=== PATIENT | female | born 1940 | race Caucasian/White ===

== ENCOUNTER → 2023-10-29 13:47 | Outpatient (REF) | payer OTHER, SELFPAY | LOC: HWRAD 13:47 | PROVIDERS: ATTENDING PHYSICIAN Nurse Practitioner Family | DX: M25.562 Pain in left knee (principal) | CPT/HCPCS: 73564 ==

== ENCOUNTER → 2024-02-19 14:02 | Outpatient (REF) | payer OTHER, SELFPAY | LOC: HWRCS 14:02 | PROVIDERS: ATTENDING PHYSICIAN Internal Medicine Cardiovascular Disease; FAMILY PHYSICIAN Internal Medicine | DX: I10 Essential (primary) hypertension (principal); I38 Endocarditis, valve unspecified | CPT/HCPCS: 93306 ==

== ENCOUNTER → 2024-10-15 09:36 | Outpatient (REF) | payer OTHER, SELFPAY | LOC: HWRAD 09:36 | PROVIDERS: ATTENDING PHYSICIAN Internal Medicine Geriatric Medicine | DX: M81.0 Age-related osteoporosis without current pathological fracture (principal) | CPT/HCPCS: 77080 ==

== ENCOUNTER 2025-05-26 00:48 | Inpatient (IN) | payer OTHER, SELFPAY ==
[2025-05-25 23:11] VITALS: BP 139/73; BMI 30.2
--- NOTE | 2025-05-25 23:19 | ED.GENMED ---
History of Present Illness
General
Chief Complaint: Heart Rate Problem
Time Seen by Provider: 05/25/25 23:19
History of Present Illness
History of Present Illness:
FOCUSED PAST MEDICAL HISTORY
- High blood pressure, hyperlipidemia
REVIEW OF OLD RECORDS
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
Note:
CHIEF COMPLAINT(S)
Heart palpitations and shortness of breath.
HISTORY OF PRESENT ILLNESS
The patient is an 85-year-old female with a history of hypertension who presented to the emergency department after experiencing a sudden onset of rapid heart rate while sitting on the sofa at approximately 9:00 to 9:30 PM. She describes the
sensation as markedly different from previous episodes of palpitations she occasionally experiences at night when she is fatigued. This episode was accompanied by dyspnea, which she has not experienced before. The patient reports her palpitations
usually resolve within a few minutes, but on this occasion, they persisted. Upon the EMS arrival, her heart rate was recorded to be in the 160s, which decreased to 110 when first assessed in the emergency department, and is currently fluctuating
between 120 and 130 beats per minute.
The patient has a past history of palpitations for which she was previously prescribed a beta-carlos by her construction code administrator, Dr. Cristy Abreu, although she is not currently on this medication. She reports rare episodes of palpitations that resolve
quickly, predominantly occurring at night and linked to tiredness. Additionally, she has noted a progressive unsteadiness on her feet for a couple of months, requiring assistance or a walker, although she does not associate this directly with her
palpitations.
An initial diagnosis of atrial fibrillation with a rapid ventricular response was confirmed via telemetry monitoring and EKG in the emergency department. There was a discussion about the risk of thromboembolic events, particularly given her risk
factors, which include female sex, age over 65, and hypertension. It was recommended that she commence anticoagulation therapy to mitigate the risk of stroke and consider hospital admission for further management and rhythm conversion therapy. A
cautious approach was advised against electrical cardioversion due to the potential risk of embolism if the atrial fibrillation had been ongoing without her knowledge.
PAST MEDICAL AND SURGICAL HISTORY
The patient has a history of hypertension.
ADDITIONAL HISTORY OBTAINED FROM SOURCES OTHER THAN THE PATIENT
According to the patients son, she requires assistance with mobility, often holding onto her husbands arm or using a walker due to unsteadiness for several months.
CHRONIC MEDICAL CONDITIONS SIGNIFICANTLY AFFECTING CARE
Hypertension
SOCIAL HISTORY
The patient reports feeling unsteady on her feet in recent months, requiring the use of a walker or support from family members.
REVIEW OF SYSTEMS
- Cardiovascular: Rapid heart rate, intermittent palpitations, history of hypertension.
- Respiratory: Shortness of breath accompanying palpitations.
PHYSICAL EXAM
General: Alert, no acute distress.
Skin: Warm, dry.
Head: Normocephalic, atraumatic.
Neck: Supple, trachea midline.
Eye Ears, nose, mouth and throat: Oral mucosa moist.
Cardiovascular: Normal peripheral perfusion, No edema. Tachycardic, irregular rhythm.
Respiratory: Respirations are non-labored.
Gastrointestinal: Abdomen nondistended.
Back: Normal range of motion, Normal alignment.
Musculoskeletal: Normal range of motion, normal strength.
Neurological: Alert and oriented to person, place, time, and situation, No focal neurological deficit observed.
Psychiatric: Cooperative, appropriate mood & affect.
PROBLEM LIST
Acute Problems:
1. Atrial fibrillation with rapid ventricular response
2. Unsteadiness on feet
Chronic Problems:
1. Hypertension
PLAN
1. Initiate a continuous intravenous drip of rate-controlling medication to manage the rapid ventricular response from atrial fibrillation.
2. Recommend admission for observation and possible initiation of anticoagulation therapy to prevent thromboembolic events.
3. Consider eventual rhythm control measures, including the cautious utility of electrical cardioversion depending on the duration of arrhythmia and risk assessment.
4. Monitor cardiac rhythm and vital signs closely in the emergency department.
DIFFERENTIAL DIAGNOSIS
The Differential Diagnosis includes, in no particular order and is not limited to:
1. Atrial fibrillation with rapid ventricular response
2. Supraventricular tachycardia
3. Multiform atrial tachycardia
4. Heart failure
5. Pulmonary embolism
6. Hyperthyroidism
7. Anemia
8. Valvular heart disease
9. Acute coronary syndrome
10. Electrolyte imbalance
EKG
- A-fib, right bundle branch block, ventricular rate 109, EKG in 2019 showed sinus rhythm
LABS
- CBC, chemistries, troponin normal
UPDATE
- Considered electrical cardioversion as symptoms appear to be acute however the patient also reports some brief episodes of palpitations as well. Her [id number] score is 3. Will rate control.
Note:
CHIEF COMPLAINT(S)
Heart palpitations and shortness of breath.
HISTORY OF PRESENT ILLNESS
The patient is an 85-year-old female with a history of hypertension who presented to the emergency department after experiencing a sudden onset of rapid heart rate while sitting on the sofa at approximately 9:00 to 9:30 PM. She describes the
sensation as markedly different from previous episodes of palpitations she occasionally experiences at night when she is fatigued. This episode was accompanied by dyspnea, which she has not experienced before. The patient reports her palpitations
usually resolve within a few minutes, but on this occasion, they persisted. Upon the EMS arrival, her heart rate was recorded to be in the 160s, which decreased to 110 when first assessed in the emergency department, and is currently fluctuating
between 120 and 130 beats per minute.
The patient has a past history of palpitations for which she was previously prescribed a beta-carlos by her construction code administrator, Dr. Cristy Abreu, although she is not currently on this medication. She reports rare episodes of palpitations that resolve
quickly, predominantly occurring at night and linked to tiredness. Additionally, she has noted a progressive unsteadiness on her feet for a couple of months, requiring assistance or a walker, although she does not associate this directly with her
palpitations.
An initial diagnosis of atrial fibrillation with a rapid ventricular response was confirmed via telemetry monitoring and EKG in the emergency department. There was a discussion about the risk of thromboembolic events, particularly given her risk
factors, which include female sex, age over 65, and hypertension. It was recommended that she commence anticoagulation therapy to mitigate the risk of stroke and consider hospital admission for further management and rhythm conversion therapy. A
cautious approach was advised against electrical cardioversion due to the potential risk of embolism if the atrial fibrillation had been ongoing without her knowledge.
PAST MEDICAL AND SURGICAL HISTORY
The patient has a history of hypertension.
ADDITIONAL HISTORY OBTAINED FROM SOURCES OTHER THAN THE PATIENT
According to the patients son, she requires assistance with mobility, often holding onto her husbands arm or using a walker due to unsteadiness for several months.
CHRONIC MEDICAL CONDITIONS SIGNIFICANTLY AFFECTING CARE
Hypertension
SOCIAL HISTORY
The patient reports feeling unsteady on her feet in recent months, requiring the use of a walker or support from family members.
REVIEW OF SYSTEMS
- Cardiovascular: Rapid heart rate, intermittent palpitations, history of hypertension.
- Respiratory: Shortness of breath accompanying palpitations.
PHYSICAL EXAM
General: Alert, no acute distress.
Skin: Warm, dry.
Head: Normocephalic, atraumatic.
Neck: Supple, trachea midline.
Eye Ears, nose, mouth and throat: Oral mucosa moist.
Cardiovascular: Normal peripheral perfusion, No edema. Tachycardic, irregular
Respiratory: Respirations are non-labored.
Gastrointestinal: Abdomen nondistended.
Back: Normal range of motion, Normal alignment.
Musculoskeletal: Normal range of motion, normal strength.
Neurological: Alert and oriented to person, place, time, and situation, No focal neurological deficit observed.
Psychiatric: Cooperative, appropriate mood & affect.
PROBLEM LIST
Acute Problems:
1. Atrial fibrillation with rapid ventricular response
2. Unsteadiness on feet
Chronic Problems:
1. Hypertension
PLAN
1. Initiate a continuous intravenous drip of rate-controlling medication to manage the rapid ventricular response from atrial fibrillation.
2. Recommend admission for observation and possible initiation of anticoagulation therapy to prevent thromboembolic events.
3. Consider eventual rhythm control measures, including the cautious utility of electrical cardioversion depending on the duration of arrhythmia and risk assessment.
4. Monitor cardiac rhythm and vital signs closely in the emergency department.
DIFFERENTIAL DIAGNOSIS
The Differential Diagnosis includes, in no particular order and is not limited to:
1. Atrial fibrillation with rapid ventricular response
2. Supraventricular tachycardia
3. Multiform atrial tachycardia
4. Heart failure
5. Pulmonary embolism
6. Hyperthyroidism
7. Anemia
8. Valvular heart disease
9. Acute coronary syndrome
10. Electrolyte imbalance
Disposition:
SUMMARY OF ENCOUNTER
The patient, an 85-year-old female with a history of hypertension, was seen in the emergency department for atrial fibrillation with rapid ventricular response. Upon arrival, her heart rate was fluctuating between 120 and 130 bpm. She was started on
a continuous intravenous drip of rate-controlling medication, which helped in reducing the heart rate, though some fluctuations remained. The patients blood work appeared normal. Given her current state of atrial fibrillation, it was determined that
immediate electrical cardioversion was not safe. The plan was to keep her under observation in the hospital, with further assessment by a construction code administrator planned for the following day.
DISPOSITION
Admit.
MANAGEMENT OF THE PATIENTS CARE WAS DISCUSSED WITH
Discussion involved notifying the hospitalist team and the group of her construction code administrator, Dr. Cristy bAreu. Contact was to be made with Ibis Garcia, the construction code administrator motion picture cameraman for further care coordination.
PLAN
The patient will be admitted for observation and further cardiac monitoring. Await consultation from the construction code administrator group associated with Dr. Cristy Abreu for ongoing evaluation and management. Electrical cardioversion is deferred for now.
PATIENT EDUCATION AND COUNSELING
The patient was informed about her atrial fibrillation and the decision to hold off on electrical cardioversion due to potential risks. Information was provided regarding the plan to admit her for further observation and cardiology evaluation.
FOLLOW-UP INSTRUCTIONS
The hospital team will coordinate with Dr. Cristy Lew cardiology group for further management decisions.
MEDICAL DECISION MAKING
-Complexity of Data Reviewed: Chronic conditions affecting care include hypertension and atrial fibrillation. Differential Diagnosis includes atrial fibrillation with rapid ventricular response, supraventricular tachycardia, and multiform atrial
tachycardia.
-Data:
Category 2: Clinical information obtained from an independent historian, the patients son provided details about her unsteadiness.
Category 3: Discussion of management with hospitalist
DIAGNOSIS
Atrial fibrillation with rapid ventricular response (ICD-10: I48.0)
Past History
Past History
ED Past Medical History: HTN, Hypercholesterolemia and Other (Vertigo)
ED Past Surgical History: Other (Pilonidal cyst)
Social History
Tobacco: Non-smoker
Alcohol: None
Phy Exam
Physical Exam
Physical Exam:
See HPI
Course
Orders/Labs/Results
Orders:
Orders
05/25/25 23:05
Electrocardiogram (*1) Urgent
Reason for Study: Chest Pain
Cardiac Monitoring- Treatment ONCE
EKG- Treatment ONCE
IV Insert/Care/Rem.- Treatment PRN
O2 Therapy [RESP] Urgent
Titrate/Wean O2 to maintain O2 sat greater than (%): 90
Special Instructions: Maintain sats >/=90%
Pulse Ox/spot Check [RESP] Urgent
Quantity: 1
Special Instructions: ON ROOM AIR
05/25/25 23:14
Complete Blood Count/With Diff Urgent
Comprehensive Metabolic Panel Urgent
TSH Reflex To Free T4 Urgent
Comment: ADD ON
Troponin I Urgent
05/25/25 23:19
Add On- LAB Urgent
Tests Added?: tsh reflex fT4
05/25/25 23:39
Diltiazem HCl [Cardizem] 10 mg IV NOW STA
05/25/25 23:45
Diltiazem 125 mg/125 ml Nss [Cardizem] 125 mg in 125 ml IV PER PROTOCOL
Initial dose in mg/hr, then titrate:: 5
Titrate to keep:: Heart rate 80-100 bpm
Titrate by mg/hr:: 5 mg/hr
Frequency of titrations (minutes):: 15
Maximum dose in mg/hr:: 15
Abnormal Lab Results
05/25/25
23:14
MPV 11.1 H fL
(7.4-10.4)
Absolute Lymphs (auto) 3.5 H 10^3/uL
(1.2-3.4)
Absolute Monos (auto) 0.8 H 10^3/uL
(0.1-0.6)
Potassium 3.4 L mmol/L
(3.5-5.1)
Chloride 110 H mmol/L
(98-107)
BUN 21 H mg/dl
(7-17)
Glucose 156 H mg/dl
(70-99)
05/25/25 23:14
05/25/25 23:14
Vital Signs
Initial and Last Documented VS:
Initial Vital Signs
BP
139/73
05/25/25 23:11
Last Documented Vital Signs
Temp Pulse Resp BP Pulse Ox
37.0 C 98 22 102/91 94
05/25/25 23:21 05/26/25 00:00 05/26/25 00:00 05/26/25 00:00 05/26/25 00:00
*Pulse Oximetry
SaO2: 95
Patient hypoxic: no
*Critical Care Note
Total Time (30-74mins, 75-104mins- exclusive of procedures): 45min
comment:
The patient's heart rate was as high as 150s�emergently placed on Cardizem bolus and drip. Vital signs closely monitored.
ED Attending Note
-
Portions of this chart may have been created with voice recognition software.� Occasional wrong word or��sound alike� substitutions may have occurred due to the inherent limitations of voice recognition software.
Discharge Plan
Departure
Prescriptions:
No Action
multivitamin [One Daily Multivitamin] 1 EACH tablet
1 ea PO DAILY
simvastatin 10 MG tablet
10 mg PO HS
amlodipine 5 MG tablet
5 mg PO DAILY
melatonin 5 MG tablet
5 mg PO HS
prednisone 20 MG tablet
60 mg PO DAILY 7 Days 0RF
Rx Instructions:
60 mg for 7 days
Referrals:
Umberto Ceja DO [Family Provider, Family Practice]
Interventions
Interventions:
*Risk Screen - Suicide Last Done: 05/25/25 23:08
*General Assessment Last Done: 05/25/25 23:08
*Neglect/Abuse Screening Last Done: 05/25/25 23:08
*ED- Fall Risk Assessment Last Done: 05/25/25 23:08
*ED COVID-19 Vaccine History Last Done: 05/25/25 23:08
*ED Influenza Vaccine History Last Done: 05/25/25 23:08
ED- Cardiac Assessment Last Done: 05/25/25 23:12
ED- Pulmonary Assessment Last Done: 05/25/25 23:12
Discharge Date and Time
Print Language: KYRGYZ
[2025-05-25 23:24] LABS: Hematocrit 41.8 % (37.0-47.0); Hemoglobin 14.1 g/dL (12.0-16.0); Mean Corp Hgb Conc. 33.7 g/dL (33.0-37.0); Mean Corpuscular Volume 85.3 fL (81.0-99.0); Nucleated Red Blood Cells % 0 %; Platelet Count 232 10^3/uL (130-400); Red Cell Dist. Width 14.1 % (11.5-14.5)
[2025-05-25 23:42] LABS: ALT (SGPT) 23 U/L (0-35); AST (SGOT) 27 U/L (14-36); Albumin 4.7 g/dl (3.5-5.0); Alkaline Phosphatase 101 U/L (38-126); Blood Urea Nitrogen 21 mg/dl (7-17); Calcium 9.4 mg/dl (8.4-10.2); Carbon Dioxide 23 mmol/L (22-30); Chloride 110 mmol/L (98-107); Estimated Creatinine Clearance 43 ml/min; Glucose 156 mg/dl (70-99); Potassium 3.4 mmol/L (3.5-5.1); Sodium 144 mmol/L (135-145); Total Protein 7.6 g/dl (6.3-8.2); eGFR > 60.00
[2025-05-25] MEDS: CARDIZEM 125 IV (23:46)
[2025-05-25] MEDS: CARDIZEM 10 MG IV (23:46)
[2025-05-25 23:50] LABS: Troponin I 0.019 ng/ml
[2025-05-25 23:51] VITALS: BP 107/61
[2025-05-26] VITALS (16 sets, daily range): BP systolic 90–146; BP diastolic 57–105; BMI 29.3
--- NOTE | 2025-05-26 00:14 | HPS.HSE ---
Family Physician
-
Family Physician: Umberto Ceja, DO
Chief Complaint
-
Palpitations
History of Present Illness
This is a 85-year-old female with past medical history of hypertension, hyperlipidemia, prior episodes of ectopy many years ago status post beta-carlos treatment and now off presenting to the emergency department with acute episode of palpitations
and dizziness.
Patient reported she was simply sitting in the chair when she noticed that her heart was racing. She felt quite dizzy and lightheaded. She denied having any chest pain. She denies any numbness or tingling. She denied any diaphoresis nausea or
vomiting. When she got up she felt more lightheaded. Patient said she attempted to splash some cold water on her face to see if the symptoms improved but did not so she called staff at the living facility who recommended that she come to the
emergency department after the evaluation showed rapid and irregular heart rate.
Patient denies any medication changes. She denied any recent cough cold flulike symptoms. She denies any recent orthopnea or PND or exertional dyspnea. She has no new lower extremity edema but reports chronic trace left lower extremity edema.
Family and patient reports a history of some unsteadiness on her feet but no recent falls.
In the emergency department she was afebrile, heart rate in the 100-1 20s. Blood pressure 110/90 and she was satting 95% on room air. ECG shows atrial fibrillation with rapid ventricular response. Troponin was 0.01. TSH was 3.63. CBC was
completely normal. Electrolytes had a potassium of 3.4 but otherwise normal. BUN and creatinine were normal.
Medical History
Past Medical History
Past Medical History: Reports HTN, Hypercholesterolemia and Other (Lactose intolerance, osteopenia)
Past Surgical History: Reports Other (Breast sees removal)
Social History
Tobacco: Non-smoker
Alcohol: None
Drug: None
Personal:
Living: With Family
Family History
Family History: Not pertinent
Allergies / Home Medications
Allergies reflects when Allergies were last updated in [facility].
Home Medications with original date entered in [facility]
Allergy/Medication List:
Allergies
Allergy/AdvReac Type Severity Reaction Status Date / Time
No Known Allergies Allergy Unverified 05/25/25 23:08
Home Medications
Aspirin 81 mg tablets, 81 mg p.o. daily
Losartan�hydrochlorothiazide 100-12.5 mg tablets, 1 tablet p.o. daily
Amlodipine 2.5 mg tablets, 5 mg p.o. daily
Review of Systems
-
Constitutional: Reports No Symptoms
EENT: Reports No Symptoms
Respiratory: Reports No Symptoms
Cardiac: Reports Palpitations; Denies Chest Pain, Diaphoresis or Syncope
Abdomen/GI: Reports No Symptoms
: Reports No Symptoms
Musculoskeletal: Reports No Symptoms
Skin: Reports No Symptoms
Neurological: Reports No Symptoms
Endocrine: Reports No Symptoms
Hematologic/Lymphatic: Reports No Symptoms
Psych: Reports No Symptoms
Physical Exam
Vital Signs
Vital Signs
Temp Pulse Resp BP Pulse Ox
98.6 F 98 22 102/91 94
05/25/25 23:21 05/26/25 00:00 05/26/25 00:00 05/26/25 00:00 05/26/25 00:00
Physical Exam
General: Well Developed, Well Nourished and No Apparent Distress
HEENT: NormoCephalic, Moist mucous membranes and Atraumatic
Respiratory: Clear
Cardiac: S1/S2, Irregular Rhythm and Tachycardia; No Murmur or Rub
GI: Soft, Non Tender, Non Distended and Normal Bowel Sounds; No Organomegaly
Rectal: Deferred by Provider
Musculoskeletal: No Clubbing, No Cyanosis and No Edema
Skin: No Rash
Neuro: AO x 3 and Nonfocal/grossly intact
Hematologic/Lymphatic: No Lymphadenopathy
Laboratory Results
-
05/25/25 23:14
05/25/25 23:14
Laboratory Results
Total Bilirubin 0.4 mg/dl (0.2-1.3) 05/25/25 23:14
AST 27 U/L (14-36) 05/25/25 23:14
ALT 23 U/L (0-35) 05/25/25 23:14
Alkaline Phosphatase 101 U/L (38-126) 05/25/25 23:14
Troponin I 0.019 ng/ml 05/25/25 23:14
Data Reviewed
-
Medical Tests (Nuc Med, Echo, EKG etc): Image Personally Visualized and interpreted
Lab Data: Labs Reviewed by me
Old Records: Reviewed
Impression/Plan
-
IMPRESSION:
85-year-old with past medical history significant for hypertension, hyperlipidemia presents to the emergency department today with acute onset of palpitations in the evening just prior to coming to the ED. She is found to be in A-fib RVR. Troponin
was negative. She has no ischemia on ECG and she denies having any chest pain. Rate was controlled with IV diltiazem but she remains tachycardic in the 120s. She is currently asymptomatic and denies sensation of palpitations. She has a history
of ectopy and was previously on metoprolol but that has been discontinued many years ago.
PLAN:
New onset A-fib with RVR
-Admit to IVU
-Continue diltiazem drip
-Consider initiation of metoprolol
-[id number] 4, start Eliquis 5 twice daily, chronic anticoagulation per cardiology
-Echocardiogram
-K repletion
-TSH within normal limits.
-N.p.o. with breakfast pending cardiology eval
Cardiology consult
Hypertension
-Hold Norvasc for now
-Continue losartan and hydrochlorothiazide
-Continue statin
DVT prophy�on Eliquis
CODE STATUS�DNR
[2025-05-26] MEDS: KCL 20 MEQ PO (00:54)
--- NOTE | 2025-05-26 02:17 | PTCARENOTE ---
received patient from ED. Patient AAox3 and on room air. Patient on cardizem gtt at 15, titrating per order. Assessment and vital signs charted. admission questions done. call bowling in reach.
[2025-05-26 04:44] LABS: Blood Urea Nitrogen 19 mg/dl (7-17); Calcium 9.8 mg/dl (8.4-10.2); Carbon Dioxide 22 mmol/L (22-30); Chloride 114 mmol/L (98-107); Estimated Creatinine Clearance 55 ml/min; Glucose 114 mg/dl (70-99); HDL Cholesterol 54 mg/dl; LDL Cholesterol, Calculated 73 mg/dl; Magnesium 2.2 mg/dl (1.6-2.3); Potassium 4.0 mmol/L (3.5-5.1); Sodium 142 mmol/L (135-145); Very Low Density Lipoprotein 40 mg/dl (0-30); eGFR > 60.00
[2025-05-26] MEDS: COZAAR 100 MG PO (08:24)
[2025-05-26] MEDS: ELIQUIS 5 MG PO (08:24)
[2025-05-26] MEDS: ORETIC 12.5 MG PO (08:24)
--- NOTE | 2025-05-26 08:28 | W.PN.HOSP.TC ---
Addendum entered and electronically signed by Matthew Baldwin MD 05/26/25 15:40:
Please dont use billing under this note, use DC billing instead
Original Note:
Today's Communication/Plan
-
see PN
Assessment / Plan
Assessment / Plan
85yo F with PMHX of HTN, HLD, bells palsy came with palpitations started at 9:30pm on the day of admission, found Afib with RVR
A/P:
#Afib with RVR, new diagnosis
Denies respiratory, GI or urinary symptoms
TSH WNL
Eliquis started
HR control as per cardiology - bridging from DIltiazem drip
Telemetry
Echo
Initial trop 0.019 - complete series with recheck
#Essential HTN
#HLD
cont home meds
#Hypocalemia
resolved
DVT ppx Eliquis
DNR/DNI
I have spent at least 58min reviewing chart, test resuslts communication with consultants and providing direct patient care
Anticipated Discharge: 24 - 48 hours
Subjective/Interval History
-
Date of Service: May 26, 2025
Objective Data
-
Labs:
Laboratory Results
05/25/25 05/26/25
23:14 04:13
WBC 9.5
Hgb 14.1
Hct 41.8
Plt Count 232
Sodium 144 142
Potassium 3.4 L 4.0
Chloride 110 H 114 H
Carbon Dioxide 23 22
BUN 21 H 19 H
Creatinine 0.9 0.7
Glucose 156 H 114 H
Calcium 9.4 9.8
Total Bilirubin 0.4
AST 27
ALT 23
Alkaline Phosphatase 101
Vital Signs:
Vital Signs
Temp Pulse Resp BP Pulse Ox
98.8 F 93 12 127/80 92
05/26/25 02:03 05/26/25 08:00 05/26/25 08:00 05/26/25 08:00 05/26/25 06:00
Review of Systems
-
History Source: Patient
All other systems: Reviewed and negative
Cardiac: Reports Palpitations
Physical Exam
-
General: No Apparent Distress
HEENT: Normocephalic
Respiratory: Clear to Auscultation
Cardiac: Irregular Rhythm
GI: Soft, Nontender and Nondistended
Musculoskeletal: No Clubbing, No Cyanosis and No Edema
Neuro: Awake, Alert, Oriented and AO x 3
Psych: Calm
--- NOTE | 2025-05-26 08:37 | CON.CAR ---
Addendum entered and electronically signed by Umberto Martin MD 05/26/25 09:55:
85-year-old woman admitted with PAF, onset 9:30 PM 05/25/2025. In general, she does well never had a similar episode prior to this. Sees Dr. Puentes.
PMH/PSH: Hypertension, hyperlipidemia, PVCs, osteopenia, breast biopsy
PSH: Non-smoker no alcohol,
Outpatient meds: Aspirin 81 mg a day losartan HCT 100/12.5, amlodipine 5 mg a day
Rest of history per below.
127/80, pulse 93, respiratory rate 12, afebrile, head neck exam unremarkable, lungs are clear, irregular rate and rhythm probable MR murmur at apex, JVD okay carotids without bruits, trace edema abdomen benign and limited exam
ECG: Atrial fibrillation, right bundle branch block borderline left axis hemoglobin 14.1, platelets 232, BUN/creatinine are 19 and 0.7, potassium 4 troponin 0.019, cholesterol 167, LDL 73, TSH normal
Echo pending
Echo January 2024: EF 60-65%, mild mitral regurgitation, MAC, aortic sclerosis, normal pulmonary artery pressure
Impression:
New onset paroxysmal atrial fibrillation
Hypertension
Hyperlipidemia
Mild mitral regurgitation
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
Plan:
Onset of atrial fibrillation less than 24 hours prior to initiation of anticoagulation. Ventricular response still rapid but better controlled on IV diltiazem.
Eliquis has been initiated.
Options of rate control and anticoagulation versus mormonism of sinus rhythm reviewed with patient. Other options available in the event of recurrence is also reviewed.
Patient has elected to proceed with cardioversion which I think is a reasonable approach.
Will proceed later today, likely reinitiate metoprolol after cardioversion and stop diltiazem.
We can repeat echo.
Patient should be okay for discharge later today if all goes well.
Original Note:
Consultation
Consultation Request
Date/Time Consultation Performed: 05/26/25
Requesting Provider: Dr. Alba
Performing Provider: Tenisha Pineda PA-C for Dr. ATA Martin
Reason for Consultation: afib with RVR
Medical History
-
Chief Complaint: palpitations
History of Present Illness:
Patient is an 85-year-old female with past medical history of hypertension, hyperlipidemia, chronic right bundle branch block, history of Middleton's palsy, with prior PVCs, previously on beta-carlos who presented to [facility] for evaluation of palpitations.
She reports that approximately 9:30 PM last evening she was sitting on her sofa and developed palpitations and feeling of heart racing. She denies having this feeling before. She reports associated dizziness and lightheadedness, however denied
chest pain, shortness of breath, diaphoresis, fevers, chills. She reports she tried to splash some cold water on her face, but symptoms did not improve and therefore came to ER for further evaluation. Upon arrival was noted to be in A-fib with
RVR, new diagnosis for patient. Was started on IV cardizem gtt @10. Denies thyroid issues, supplements, increase in ETOH and caffeine use. Cardiology consulted for evaluation.
PMH:
History of PVCs
HTN
HLD
Chronic RBBB
History of Middleton's palsy
Past Medical History
Past Medical History: Other (in HPI)
Social History
Tobacco: Non-Smoker
Alcohol: None
Personal:
Living: With Family
Employment: Retired
Family History
Family History: Cancer
Allergies / Home Medications
Allergy/AdvReac Type Severity Reaction Status Date / Time
No Known Allergies Allergy Unverified 05/25/25 23:08
�Medication �Instructions �Recorded �Confirmed �Type
amlodipine 5 mg tablet 5 mg PO DAILY 03/14/19 03/14/19 History
melatonin 5 mg tablet 5 mg PO HS 03/14/19 03/14/19 History
multivitamin (One Daily 1 ea PO DAILY 03/14/19 03/14/19 History
Multivitamin tablet)
simvastatin 10 mg tablet 10 mg PO HS 03/14/19 03/14/19 History
prednisone 20 mg tablet 60 mg (3 x 20 mg) PO DAILY 7 days 03/15/19 Rx
Review of Systems
-
History Source: Patient
All other systems: Negative unless noted
Physical Exam
Vital Signs
Temp Pulse Resp BP Pulse Ox
98.8 F 93 12 127/80 92
05/26/25 02:03 05/26/25 08:00 05/26/25 08:00 05/26/25 08:00 05/26/25 06:00
Lab Results
05/25/25 23:14
05/26/25 04:13
Troponin I 0.019 ng/ml 05/25/25 23:14
Physical Exam
General: No Apparent Distress and Comfortable
HEENT: Normocephalic, Anicteric and Moist Mucous Membranes
Respiratory: Clear and Non Labored Respirations
Cardiac: S1/S2 and Irregular Rhythm
GI: Soft, Non Tender, Non Distended and Normal Bowel Sounds
Musculoskeletal: No Clubbing, No Cyanosis and No Edema
Skin: Warm and Dry
Neuro: AO x 3
Impression / Plan
-
Primary Barrel Roller: Dr. Cristy Beltre
Assessment:
Atrial fibrillation, new diagnosis with RVR, less than 24 hours duration
History of PVCs
HTN
HLD
Chronic RBBB
History of Middleton's palsy
ECHO 02/19/2024: EF 60 to 65%, septal hypertrophy, MAC, mild MR, aortic sclerosis, normal right heart
Plan:
- Patient presents with palpitations and found to be in atrial fibrillation with RVR, new diagnosis for patient. Upon discussion, she is insistent that she went into this around 9:30 PM last evening, and denies having prior issues with this type of
palpitation in the past (reports PVCs feel different)
- Currently remains in A-fib with heart rates in 100s to 110s on IV Cardizem at 10. transition to p.o. Cardizem versus beta-carlos post cardioversion (had been on beta-carlos in the past for PVCs).
- N.p.o. for cardioversion today. Procedure discussed with patient and she is agreeable to proceed
- [id number] score of 4 for age, female, hypertension. Discussed anticoagulation and she is agreeable to Eliquis. Will start this a.m.
- TSH within normal limits
- Troponins within normal limits
- Check echo, last from 2023 as above
- Discussed with hospitalist
Data Reviewed
-
EKG: Tracing Personally Visualized and interpreted
Medical Tests (Nuc Med, Echo etc): Report Reviewed by me
Labs: Labs Reviewed by me
Old Records: Reviewed
[2025-05-26 10:28] LABS: Troponin I 0.085 ng/ml
[2025-05-26] MEDS: CARDIZEM 125 IV (10:50)
--- NOTE | 2025-05-26 10:57 | PTCARENOTE ---
NPO x am meds since yesterday. AF on tele rates 80s-110 titrated IV Diltiazem gtt back up to 15mg/ hr. OOB to bsc voided clear yellow - HR do elevate to 140s with activity. 96% RA. Report to Kristina, Escorted to garden labourer by lab RNs.
--- NOTE | 2025-05-26 13:56 | CM ---
Initial Assessment Completed By SHANNAN Manley
Patient lives with her at [facility] Living in an apartment, there is an elevator, all on once level, for the last 13 months. Patient uses a single cane only outside of the center because there are grab bars along the wall. Patient
has No other DME, No Home PT/VN, and No Inpatient Rehab before.
PCP: Umberto Ceja
Pharmacy: [facility] in [place]
Patient has transportation Home when ready. PLAN: Anticipate Home No Needs.
--- NOTE | 2025-05-26 14:36 | W.DCSUMMARY ---
Discharge Summary
Discharge Data
Date of Admission: 05/26/25
Date of Discharge: 05/26/25
-
Pending Results: No
Hospital Course
85yo F with PMHX of HTN, HLD, bells palsy came with palpitations started at 9:30pm on the day of admission, found Afib with RVR. Had susscessful cardioversion on 05/26/25 and as per cardiology - can be d/c home. No precipitating factor for Afib
found. Eliquis cost confirmed to be acceptable with family. Medcially stable to be d/c home. HCTZ stopped in view of hypokalemia on admisison and new rate control meds.
I have spent at least 58min reviewing chart, test resuslts communication with consultants and providing direct patient care
Patient was managed for:
#Afib with RVR, new diagnosis
#Non-ischemic myocardial injury 2/2 tachycardia
#Essential HTN
#HLD
#Hypokalemia
Discharge Plan
-
Patient Disposition: Home (Routine Discharge)
Discharge Diagnosis/Procedures: Afib
Diet: Low Cholesterol
Activity: As tolerated
Referrals:
Umberto Ceja DO [Family Provider, [facility]]
Ashley Felix PA-C [Specified Professional Personl, Cardiology] - 06/17/25 11:20 am
Referral Note: You have a cardiology follow-up appointment with Dr. Muniz's physician investigative assistant, Ashley. Please call with questions.
Additional Discharge Medication Instructions: Stop HCTZ (hydrochlorothiazide)
Prescriptions:
New
Eliquis 5 mg Tablet
5 mg PO BID Qty: 60 0RF
losartan 100 mg Tablet
100 mg PO DAILY Qty: 30 0RF
diltiazem HCl 120 mg Capsule,Extended Release 24hr
120 mg PO DAILY Qty: 30 0RF
Continued
multivitamin [One Daily Multivitamin] 1 EACH tablet
1 ea PO DAILY
simvastatin 10 MG tablet
10 mg PO HS
melatonin 5 MG tablet
5 mg PO HS
Discontinued
amlodipine 5 MG tablet
5 mg PO DAILY
Discharge Orders:
Discharge Patient (As Directed); Ordered 05/26/25
Ordered By: Matthew Baldwin
Discharge Date and Time
Print Language: FAROESE
[2025-05-26 15:00] LABS: Troponin I 0.060 ng/ml
--- NOTE | 2025-05-26 15:07 | PTCARENOTE ---
Returned to [id number], IV Cardizem gtt off, tele showing SR , SA BP 115/79. PO diet orders obtained- pt ordered. Troponin drawn and sent to lab. Continue to monitor until discharge plan known.
[2025-05-26] MEDS: CARDIZEM CD 120 MG PO (15:20)
[2025-05-26] MEDS: TYLENOL 650 MG PO (15:20)
--- NOTE | 2025-05-26 16:04 | CM ---
F/U: Patient discharging, has no needs. PLAN: Discharge with no needs.
== END 2025-05-26 16:24 | disposition home or self-care (01) | DRG 309 ==
LOC: IMU 00:48
PROVIDERS: Internal Medicine Cardiovascular Disease; Student in an Organized Health Care Education/Training Program; ADMITTING PHYSICIAN Internal Medicine; ATTENDING PHYSICIAN Internal Medicine; EMERGENCY PHYSICIAN Emergency Medicine; FAMILY PHYSICIAN Student in an Organized Health Care Education/Training Program; OTHER PHYSICIAN Internal Medicine Cardiovascular Disease
PROC: 5A2204Z Restoration of Cardiac Rhythm, Single (ICD-10-PCS; 2025-05-26)
DX: I48.0 Paroxysmal atrial fibrillation (principal); I5A Non-ischemic myocardial injury (non-traumatic); I10 Essential (primary) hypertension; Z66 Do not resuscitate; E87.6 Hypokalemia; Z79.01 Long term (current) use of anticoagulants; Z79.899 Other long term (current) drug therapy
CPT/HCPCS: 80048; 80053; 80061; 83735; 84443; 84484; 85025; 92960; 93005; 93306; 99291